=== PATIENT | male | born 1955 | race Caucasian/White ===

== ENCOUNTER 2021-04-04 12:03 | Outpatient (CLI) | payer MEDICARE, OTHER ==
--- NOTE | 2021-04-04 12:50 | XRAY Report ---
PROCEDURE: Chest 2 View X-Ray INDICATIONS: Cough TECHNIQUE: 2 view(s) of the chest. COMPARISON: None. FINDINGS: Surgical changes and devices: None. Lungs and pleura: No pleural effusions or pneumothorax. Lungs are clear. Mediastinum: Mediastinal contours are normal. Heart size is normal. Bones and chest wall: No suspicious bony abnormalities. Soft tissues appear unremarkable. IMPRESSION: No acute cardiopulmonary process demonstrated radiographically. Reviewed by: Elvin Vences MD on 04/04/2021 12:49 PM PDT Approved by: Elvin Vences MD on 04/04/2021 12:49 PM PDT Station ID: [id number]
== END 2021-04-04 23:59 | disposition home or self-care (01) ==
LOC: DI.N 12:03
PROVIDERS: ATTEND Nurse Practitioner
DX: R05 Cough (principal)